=== PATIENT | female | born 1950 | race Caucasian/White ===

== ENCOUNTER → 2020-12-29 12:11 | Outpatient (CLI) | payer MEDICARE, SELFPAY ==
--- NOTE | 2020-12-29 12:21 | DI.MRI.S_ITS ---
PROCEDURE: MR ANKLE RT WO CON INDICATIONS: Achilles tendinitis, right leg TECHNIQUE: Noncontrast sagittal T1 spin echo and T2 fast spin echo with fat saturation, axial proton density fast spin echo and T2 fast spin echo with fat saturation, coronal T1 spin echo and T2 fast spin echo with fat saturation through the ankle/hindfoot. COMPARISON: None. FINDINGS: Image quality: Excellent. Bones and joints: No bone marrow contusions or fractures. No hindfoot coalitions. No osteochondral injuries of the talar dome. No pathologic joint effusions. Extensive subcutaneous edema is noted in the visualized lower leg in the ankle juxta-articular soft tissues Medial structures: The posterior tibialis, flexor digitorum longus, and flexor hallucis longus tendons are intact. The posterior tibial neurovascular bundle appears normal within the tarsal tunnel, without extrinsic mass effect. The deep layer (anterior and posterior tibiotalar ligaments) and superficial layer (tibionavicular, tibiospring, and tibiocalcaneal ligaments) of the deltoid ligament appear normal. The spring ligament components (superomedial calcaneonavicular, medioplantar oblique calcaneonavicular, and inferoplantar longitudinal ligaments) are intact. Lateral structures: The anterior talofibular, calcaneofibular, and posterior talofibular ligaments appear intact. More superiorly, the anterior and posterior tibiofibular ligaments appear intact, as is the intermalleolar ligament. The tibiofibular syndesmosis is normal in width at 2 mm or less. The peroneus longus and brevis tendons demonstrate normal location and morphology. Adjacent bony peroneal tubercle and retrotrochlear prominence are normal in size. The sinus tarsi demonstrates normal fatty signal, without edema, fibrosis, or cyst formation. Visualized sinus tarsi components (cervical ligament, interosseous talocalcaneal ligament, roots of the inferior extensor retinaculum) appear normal. The calcaneonavicular and calcaneocuboid components of the bifurcate ligament appear intact. The dorsal calcaneocuboid ligament appears intact. Anterior structures: The tibialis anterior, extensor hallucis longus, and extensor digitorum longus tendons appear intact. The dorsal talonavicular ligament appears intact. Posterior and plantar structures: Achilles tendon is intact. Achilles tendon is thickened with increased internal signal compatible severe tendinitis. Dorsal calcaneal bone spurring is noted at the attachment of the Achilles. Achilles walter-tendon soft tissue edema and pre-Achilles bursal fluid compatible with bursitis. Medial band of the plantar fascia is thickened compatible with fasciitis. There is plantar calcaneal bone spur. Lateral of the plantar fascia are of normal thickness. No abductor digiti quinti muscle atrophy to suggest Song neuropathy. IMPRESSION: 1. Severe Achilles tendinosis with pre-Achilles bursitis. 2. Plantar fasciitis. 3. Extensive, nonspecific subcutaneous edema involving the visualized lower leg and the ankle juxta-articular soft tissues. Dictated by: Rosita Vargas MD, PhD on 12/29/2020 at 13:02 Approved by: Rosita Vargas MD, PhD on 12/30/2020 at 17:30
== END ==
PROVIDERS: PCP Family Medicine; Referring Provider Family Medicine; Visit Provider Family Medicine
DX: M76.61 Achilles tendinitis, right leg (principal); M72.2 Plantar fascial fibromatosis; R60.0 Localized edema
CPT/HCPCS: 73721